=== PATIENT | male | born 1960 | race Caucasian/White ===

== ENCOUNTER 2022-01-29 04:45 | Day surgery (SDC) | payer OTHER ==
[2022-01-28 17:17] VITALS: BMI 30.7
[~2022-01-29 04:45] MED LIST: ceFAZolin SODIUM 1 GM VIAL IVPB ONE
[2022-01-29] MEDS ORDERED: MIDAZOLAM HCL 2 MG/2 ML SINGLE DOSE VIAL ONE (15:59)
[2022-01-29] MEDS ORDERED: PROPOFOL 20 ML ONE (15:59)
[2022-01-29] MEDS ORDERED: ceFAZolin SODIUM 1 GM VIAL ONE (16:15)
[2022-01-29] MEDS ORDERED: ceFAZolin SODIUM 1 GM VIAL IVPB ONE (16:16)
[2022-01-29] MEDS ORDERED: ONDANSETRON 4 MG/2 ML VIAL IVPUSH PRN (17:07)
[2022-01-29] MEDS ORDERED: oxyCODONE HCL 5 MG TABLET PO PRN (17:07)
[2022-01-29] MEDS ORDERED: LACTATED RINGERS SOLUTION 1,000 ML IV SCH (17:15)
[2022-01-29 18:56] VITALS: TEMP 97.1
[2022-01-29 19:02] VITALS: BP 110/74; PULSE 72
== END 2022-01-29 19:37 | disposition home or self-care (01) ==
LOC: JASU-SURG 04:45
PROVIDERS: ATTEND Urology
PROC: 0T7D8DZ Dilation of Urethra with Intraluminal Device, Via Natural or Artificial Opening Endoscopic (ICD-10-PCS; principal; 2022-01-29 15:00)
DX: N40.1 Benign prostatic hyperplasia with lower urinary tract symptoms (principal); N13.8 Other obstructive and reflux uropathy
CPT/HCPCS: C9740; L8699; 94760